=== PATIENT | male | born 1940 | race Hispanic/Latino ===

== ENCOUNTER 2024-08-04 13:04 | Inpatient (IN) | payer OTHER, MEDICARE ==
[~2024-08-04] VITALS: Ht 160 cm; Wt 68.4 kg
[~2024-08-04 13:04] MED LIST: AMLO-257 PO; HYDR2TAB8 PO; LOSA-422 PO; SIMV-46 PO
--- NOTE | 2024-08-04 13:11 | ERN ---
ED Note History of Present Illness Stated Complaint: COUGH Chief Complaint: Cough Time Seen by MD: 13:06 Dictation: PATIENT IS A 83-YEAR-OLD MALE HERE WITH A PRODUCTIVE COUGH THAT IS BLOOD-TINGED ONSET YESTERDAY WITH FEVER AND CHILLS. HE IS ALSO COMPLAINING OF DIFFUSE ANTE RIOR CHEST PAIN DOES NOT RADIATE. NO SHORTNESS A BREATH NO NAUSEA VOMITING NO DIARRHEA. DENIES ANY HISTORY OF CAD HYPERTENSION STENTS. Allergies: Coded Allergies: No Known Allergies (Verified Allergy, Severe, 07/19/16) Home Meds Reported Medications Atorvastatin Calcium (LIPITOR) 40 Mg Tablet, 1 TAB PO DAILY for 30 Days, #30 TAB 0 Refills 08/05/24 Tamsulosin HCl (Flomax) 0.4 Mg Cap.er.24h, 1 CAP PO DAILY for 30 Days, #30 CAP 0 Refills 08/05/24 Lisinopril/Hydrochlorothiazide (Lisinopril-Hctz 20-12.5 mg Tab) 20 Mg-12.5 Mg Tablet, 2 TAB PO DAILY for 30 Days, #30 TAB 0 Refills 08/05/24 Lactulose (Lactulose) 10 Gram/15 Ml Solution, 30 ML PO DAILY for constipation, #900 ML 0 Refills 08/05/24 Discontinued Reported Medications Simvastatin (Simvastatin) 40 Mg Tablet, 40 MG PO HS, TAB 07/19/16 Losartan/Hydrochlorothiazide (Hyzaar 50-12.5 Tablet) 1 Each Tablet, 1 EACH PO DAILY, TAB 07/19/16 Amlodipine Besylate (Amlodipine Besylate) 5 Mg Tablet, 5 MG PO DAILY, TAB 07/19/16 Hydromorphone HCl (Hydromorphone HCl) 2 Mg Tablet, 2 MG PO Q4H PRN for PAIN LEVEL 6 TO 10, TAB 07/25/16 Hydromorphone HCl (Hydromorphone HCl) 2 Mg Tablet, 2 MG PO Q3H PRN for PAIN LEVEL 6 TO 10, TAB 07/25/16 Past Medical History Past Medical History: Hypertension Surgical History: Other RN Note Reviewed/Agreed w/PFSH: Yes Review of System Dictation CONSTITUTIONAL: NEGATIVE EXCEPT FOR HPI FEVER CHILLS HEAD/FACE: NEGATIVE EXCEPT FOR HPI EENT: NEGATIVE EXCEPT FOR HPI RESPIRATORY: NEGATIVE EXCEPT FOR HPI COUGH WITH CHEST PAIN DIFFUSE ANTERIOR GASTROINTESTINAL/ABDOMINAL: NEGATIVE EXCEPT FOR HPI GENITOURINARY: NEGATIVE EXCEPT FOR HPI MUSCULOSKELETAL: NEGATIVE EXCEPT FOR HPI INTEGUMENTARY: NEGATIVE EXCEPT FOR HPI NEUROLOGICAL/PSYCH: NEGATIVE EXCEPT FOR HPI HEMATOLOGIC/LYMPHATIC: NEGATIVE EXCEPT FOR HPI ALL SYSTEMS NEGATIVE, EXCEPT NOTED ABOVE. 13 POINT REVIEW OF SYSTEMS ASSESSED AND ALL NEGATIVE EXCEPT FOR ABOVE. Initial Vital Sign VS Vital Signs Date Time Temp Pulse Resp B/P (MAP) Pulse Ox O2 Delivery O2 Flow Rate FiO2 08/04/24 13:06 101.7 94 20 110/51 98 Room Air 08/04/24 16:13 0 21 Physical Exam Dictation VITAL SIGNS REVIEWED GENERAL APPEARANCE: ALERT, ORIENTED X 3, NO ACUTE DISTRESS, WELL DEVELOPED, NOURISHED. HEAD AND FACE: NON-TRAUMATIC. EYES: PERRL, PINK CONJUNCTIVAS, EYELID NO TRAUMA, ANTERIOR CHAMBER WITH ARCUS SENILIS. EARS: PINNAS INTACT AND NO SIGNS OF TRAUMA OR ERYTHEMA EAR CANALS CLEAR AND NO DISCHARGE TM NO ERYTHEMA NOSE: NO DISCHARGE, NO BLEEDING. OROPHARYNX: MOUTH NORMAL, TONGUE PINK, PHARYNX CLEAR,NO ERYTHEMA, TONSILS NO EXUDATES, NO ABSCESSES NOTED, MUCOUS MEMBRANE MOIST NECK: SUPPLE, NON-TENDER, NO THYROMEGALY, NO MASSES, NO JVD, NO BRUITS BREAST:DEFERRED CHEST:NO TENDERNESS, NO CREPITUS, NO PARADOXICAL MOVEMENT, NO RETRACTIONS LUNGS:CLEAR, WELL-VENTILATED, SYMMETRIC, NO RALES, NO WHEEZING, NO RHONCHI, NO STRIDOR, GOOD BREATH SOUNDS BILATERALLY HEART: REGULAR RATE, REGULAR RHYTHM, NO MURMUR, NO GALLOPS VASCULAR: NO PERIPHERAL EDEMA, ABDOMEN: SOFT, POSITIVE BOWEL SOUNDS, NONDISTENDED, NO GUARDING, NONTENDER, NO REBOUND, NO MASSES NO HEPATOMEGALY, NO SPLENOMEGALY, NO WIN'S SIGN, NO HERNIAS. RECTAL: DEFERRED GENITAL: DEFERRED NEUROLOGICAL: NORMAL SPEECH, MOTOR FUNCTION INTACT, SENSORY FUNCTION INTACT MUSCULOSKELETAL: NECK NONTENDER, FULL RANGE OF MOTION, BACK NONTENDER, FULL RANGE OF MOTION, EXTREMITIES: NONTENDER, FULL RANGE OF MOTION SKIN: COLOR PINK, DRY, NO TURGOR, NO RASH, NO LACERATIONS, NO ABRASIONS, NO CONTUSIONS. LYMPHATIC: DEFERRED Results (Laboratory/Radiology) Laboratory/Radiology Laboratory Tests Test 08/04/24 13:08 08/04/24 13:29 08/04/24 17:20 08/04/24 18:39 Influenza Type A Antigen Negative For Type A Influenza Type B Antigen Negative For Type B SARS-CoV-2 Antigen (Rapid) PRESUMPTIVE NEGATIVE Group A Streptococcus Rapid negative (NEGATIVE) White Blood Count 32.1 K/uL (4.8-10.8) *H Red Blood Count 3.90 MIL/uL (4.50-6.20) L Hemoglobin 12.0 g/dL (14.0-18.0) L Hematocrit 37.4 % (42-54) L Mean Corpuscular Volume 95.9 fL (79-99) Mean Corpuscular Hemoglobin 30.8 pg (27.0-33.0) Mean Corpuscular Hemoglobin Concent 32.1 g/dL (32.0-36.0) Red Cell Distribution Width 14.4 % (11.0-15.5) Platelet Count 282 K/uL (130-400) Mean Platelet Volume 10.1 fL (7.5-10.5) Immature Granulocyte % (Auto) 4.0 % (0-1) H Neutrophils (%) (Auto) 86.2 % (40.0-77.0) H Lymphocytes (%) (Auto) 5.2 % (21.0-51.0) L Monocytes (%) (Auto) 4.4 % (3.0-13.0) Eosinophils (%) (Auto) 0.0 % (0.0-8.0) Basophils (%) (Auto) 0.2 % (0.0-5.0) Neutrophils # (Auto) 27.7 K/uL (1.8-7.7) H Lymphocytes # (Auto) 1.7 K/uL (1.0-4.8) Monocytes # (Auto) 1.4 K/uL (0.1-1.0) H Eosinophils # (Auto) 0.00 K/uL (0.00-0.70) Basophils # (Auto) 0.06 K/uL (0.00-0.20) Absolute Immature Granulocyte (auto 1.29 K/uL (0-1) H Segmented Neutrophils % 75 % (40-70) H Band Neutrophils % 18 % (0-2) H Lymphocytes % (Manual) 5 % (22-44) L Nucleated Red Blood Cells 0.0 % (0.0-0.19) Differential Comment MANUAL DIFFERENTIAL Reactive Lymphocytes 2 % (0-0) H White Cell Morphology Comment TOXIC GRANULATION 1+ Platelet Morphology Comment Red Blood Cell Morphology See comments Sodium Level 135 mmol/L (136-145) L Potassium Level 4.1 mmol/L (3.5-5.1) Chloride Level 99 mmol/L (101-111) L Carbon Dioxide Level 26 mmol/L (21-32) Blood Urea Nitrogen 44 mg/dL (7-18) H Creatinine 1.9 mg/dL (0.5-1.3) H Glomerular Filtration Rate Calc 35 mL/min (>90) Random Glucose 93 mg/dL (70-105) Lactic Acid Level 2.5 mmol/L (0.8-2.5) 6.5 mmol/L (0.8-2.5) H Total Calcium 8.5 mg/dL (8.5-10.1) Troponin I High Sensitivity 153 ng/L (4-75) *H 123.8 ng/L (4-75) *H Urine Color LIGHT-YELLOW (YELLOW) Urine Appearance CLEAR (CLEAR) Urine pH 5.0 (5.0-8.0) Urine Specific [place] 1.015 (1.001-1.031) Urine Protein 10 mg/dL (NEGATIVE) H Urine Glucose (UA) NEGATIVE mg/dL (NEGATIVE) Urine Ketones NEGATIVE mg/dL (NEGATIVE) Urine Occult Blood NEGATIVE (NEGATIVE) Urine Nitrate NEGATIVE (NEGATIVE) Urine Bilirubin NEGATIVE mg/dL (NEGATIVE) Urine Urobilinogen 0.2 mg/dL (0.2-1.0) Urine Leukocyte Esterase NEGATIVE [place]/uL Urine RBC 2-5 /HPF (0-1) H Urine WBC 0-1 /HPF (0-1) Urine Squamous Epithelial Cells RARE /HPF (0-2) Urine Bacteria RARE /HPF (None Seen) Total Creatine Kinase 162 U/L (21-232) Test 08/04/24 19:44 08/04/24 22:11 08/05/24 00:20 08/05/24 04:57 Whole Blood Glucose 94 MG/DL (70-110) Lactic Acid Level 1.8 mmol/L (0.8-2.5) Total Creatine Kinase 119 U/L (21-232) # Troponin I High Sensitivity 91.8 ng/L (4-75) *H White Blood Count 22.1 K/uL (4.8-10.8) #H Red Blood Count 3.01 MIL/uL (4.50-6.20) #L Hemoglobin 9.2 g/dL (14.0-18.0) #L Hematocrit 28.4 % (42-54) #L Mean Corpuscular Volume 94.4 fL (79-99) Mean Corpuscular Hemoglobin 30.6 pg (27.0-33.0) Mean Corpuscular Hemoglobin Concent 32.4 g/dL (32.0-36.0) Red Cell Distribution Width 14.3 % (11.0-15.5) Platelet Count 197 K/uL (130-400) # Mean Platelet Volume 10.3 fL (7.5-10.5) Immature Granulocyte % (Auto) 0.9 % (0-1) Neutrophils (%) (Auto) 87.5 % (40.0-77.0) H Lymphocytes (%) (Auto) 7.2 % (21.0-51.0) L Monocytes (%) (Auto) 4.2 % (3.0-13.0) Eosinophils (%) (Auto) 0.0 % (0.0-8.0) Basophils (%) (Auto) 0.2 % (0.0-5.0) Neutrophils # (Auto) 19.3 K/uL (1.8-7.7) H Lymphocytes # (Auto) 1.6 K/uL (1.0-4.8) Monocytes # (Auto) 0.9 K/uL (0.1-1.0) Eosinophils # (Auto) 0.01 K/uL (0.00-0.70) Basophils # (Auto) 0.04 K/uL (0.00-0.20) Absolute Immature Granulocyte (auto 0.20 K/uL (0-1) Nucleated Red Blood Cells 0.0 % (0.0-0.19) Sodium Level 141 mmol/L (136-145) Potassium Level 4.0 mmol/L (3.5-5.1) Chloride Level 109 mmol/L (101-111) Carbon Dioxide Level 22 mmol/L (21-32) Blood Urea Nitrogen 40 mg/dL (7-18) H Creatinine 1.5 mg/dL (0.5-1.3) H Glomerular Filtration Rate Calc 46 mL/min (>90) Random Glucose 84 mg/dL (70-105) Total Calcium 7.4 mg/dL (8.5-10.1) L Procalcitonin 1.54 ng/mL (0.05-0.5) H Test 08/05/24 05:11 Whole Blood Glucose 78 MG/DL (70-110) 1415/right lower lobe pneumonia Labs Reviewed?: Yes EKG Comment: EKG SINUS RHYTHM/HEART RATE 88/LEFT ATRIAL ENLARGEMENT/AXIS NORMAL ED Course ED Course Orders Procedure Category Date Status Time Covid19 (Sars Antigen LAB 08/04/24 Complete Rapid) 13:06 Influenza Type A & B, LAB 08/04/24 Complete Rapid 13:06 Rapid (Group A Strep) LAB 08/04/24 Complete 13:06 Cbc With Differential LAB 08/04/24 Complete 13:06 Blood Cult ANGELA 08/04/24 In Process 13:06 Troponin I High LAB 08/04/24 Complete Sensitivity 13:06 Lactic Acid LAB 08/04/24 Complete 13:06 Basic Metabolic Panel LAB 08/04/24 Complete 13:06 12 Lead Ekg Tracing- EKG 08/04/24 Resulted Technical 13:06 Albuterol 0.083% PHA 08/04/24 Complete 2.5mg/3ml (Proventil 13:30 Chest 1vw RAD 08/04/24 Resulted 13:50 Manual Differential LAB 08/04/24 Complete 13:29 Aspirin 325mg Tab PHA 08/04/24 Complete (Aspirin 325mg Tab) 14:30 0.9%Nacl 1000ml (Ns PHA 08/04/24 Complete 1000ml) 14:30 Ceftriaxone 2gm Vial PHA 08/04/24 Complete (Rocephin 2gm Inj) 14:30 Azithromycin 500mg+Ns PHA 08/04/24 Complete 250ml (Azithromyci 14:13 Oxygen By Nc/Pulse Ox CPOE 08/04/24 Transmitted 14:14 Urinalysis Profile LAB 08/04/24 Complete 14:18 Admit Orders ADM 08/04/24 Transmitted 15:01 Edm Admit Bridge Order ADM 08/04/24 Transmitted 15:01 Cardiac Panel LAB 08/04/24 Complete 18:00 Cardiac Panel LAB 08/05/24 Complete 00:00 Respiratory Cult ANGELA 08/05/24 In Process W/Gram Stain 04:00 Procalcitonin LAB 08/05/24 Complete 04:00 Cbc With Differential LAB 08/05/24 Complete 04:00 Cbc With Differential LAB 08/06/24 Verified 04:00 Cbc With Differential LAB 08/07/24 Verified 04:00 Basic Metabolic Panel LAB 08/05/24 Complete 04:00 Basic Metabolic Panel LAB 08/06/24 Verified 04:00 Basic Metabolic Panel LAB 08/07/24 Verified 04:00 Vital Signs Every 4 CPOE 08/04/24 Transmitted Hours 15:00 Activity: Ambulate W/ CPOE 08/04/24 Transmitted Assist 15:00 Heart Healthy Diet DIET 08/04/24 Transmitted Dinner O2 Order RT 08/04/24 Transmitted 15:00 Cefepime Hcl 1 Gm PHA 08/04/24 In Process Vial (Maxipime 1 Gm Vi 15:00 Doxycycline 100mg+Ns PHA 08/04/24 In Process 250ml (Doxycycline 15:00 Enoxaparin Sodium 30 PHA 08/05/24 In Process Mg/0.3 Ml (Lovenox) 09:00 Aspirin 81mg Chew Tab PHA 08/05/24 In Process (Aspirin 81mg Chew 09:00 Acetaminophen 325 Tab PHA 08/04/24 In Process (Tylenol 325mg Tab 15:00 Acetaminophen 650mg PHA 08/04/24 In Process Supp (Tylenol 650mg 15:00 Lactulose 20 Gm/30 Ml PHA 08/04/24 In Process Udcup (Constulose 15:00 Ondansetron 4mg Inj PHA 08/04/24 In Process (Zofran 4mg Inj) 15:00 Apply Scds CPOE 08/04/24 Transmitted 15:00 Condition: CPOE 08/04/24 Transmitted 15:00 Telemetry Monitoring CPOE 08/04/24 Transmitted 15:00 Initiate ONI 08/04/24 In Process Hyperglycemia Protoco 15:00 Admit Orders ADM 08/04/24 Transmitted 15:00 Initiate ONI 08/04/24 In Process Hyperglycemia Protoco 15:00 Lactic Acid (Removed) LAB 08/04/24 Complete 16:45 Lactic Acid LAB 08/04/24 Complete 22:00 *Nursing CPOE 08/04/24 Transmitted Communication: 19:03 Lactated Ringers PHA 08/04/24 Complete 1000ml (Lactated 19:30 Lactated Ringers PHA 08/04/24 In Process 1000ml (Lactated 19:30 *Nursing CPOE 08/04/24 Transmitted Communication: 19:03 Chest 1vw RAD 08/05/24 Taken 06:00 Current Medications Medications (Trade) Dose Ordered Sig/Yashira Route PRN Reason Start Time Stop Time Status Last Admin Dose Admin Acetaminophen (TYLenol 325MG TAB) 650 mg Q6H PRN PO FEVER/MILD PAIN LEVEL 1-3 08/04/24 15:00 09/03/24 14:59 Acetaminophen (TYLenol 650MG SUPPOSITORY) 650 mg Q6H PRN RC FEVER / MILD PAIN 1-3 IF NPO 08/04/24 15:00 09/03/24 14:59 Albuterol Sulfate (Proventil 0.083% 2.5mg/3ml) 2.5 mg ONCE ONCE IH 08/04/24 13:30 08/04/24 13:31 DC 08/04/24 14:36 Aspirin (Aspirin 325mg Tab) 325 mg ONCE ONCE PO 08/04/24 14:30 08/04/24 14:31 DC 08/04/24 14:16 Azithromycin 250 ml @ 250 mls/hr ONCE STAT IVPB 08/04/24 14:13 08/04/24 15:12 DC 08/04/24 15:55 Cefepime HCl (MAXipime 1 GM vial) 1 gm Q24H IVP 08/04/24 15:00 08/14/24 14:59 08/04/24 15:54 Ceftriaxone Sodium (Rocephin 2gm Inj) 2 gm ONCE ONCE IVPB 08/04/24 14:30 08/04/24 14:31 DC 08/04/24 14:15 Doxycycline Hyclate (Doxycycline 100mg+NS 250ml) 100 mg Q12H IV 08/04/24 15:00 08/14/24 14:59 08/05/24 02:15 Lactulose (Constulose 20gm/ 30ml Udcup) 20 gm Q6H PRN PO CONSTIPATION 08/04/24 15:00 09/03/24 14:59 Ondansetron HCl (zoFRAN 4MG INJ) 4 mg Q6H PRN IVP NAUSEA/VOMITING 08/04/24 15:00 09/03/24 14:59 Sodium Chloride 1,000 ml @ 0 mls/hr ONCE ONCE IV 08/04/24 14:30 08/04/24 14:31 DC 08/04/24 14:16 Vital Signs Date Time Temp Pulse Resp B/P (MAP) Pulse Ox O2 Delivery O2 Flow Rate FiO2 08/05/24 03:50 97.9 72 18 118/49 96 Room Air 21 08/04/24 23:29 98.6 74 18 112/66 96 Room Air 21 08/04/24 20:13 98.4 85 18 110/49 96 Room Air 21 08/04/24 19:30 96 Room Air* 0 21 08/04/24 18:58 97.9 56 20 124/49 96 Room Air 21 08/04/24 16:13 99.0 90 20 112/50 0 Room Air* 0 08/04/24 14:36 83 20 08/04/24 13:06 101.7 94 20 110/51 98 Room Air 1500/SPOKE WITH CLEMENT MCDONALD HOSPITALIST AND REVIEWED CHEST X-RAY EKG LABS AND INTERVENTIONS FOR SEPSIS HE AGREED TO ADMIT PATIENT. Medical Decision Making MDM MDM: Differential diagnosis: Pneumonia/bronchitis/electrolyte imbalance/dehydration/SARs COVID/influenza/ACS/AMI Rationale: Tests considered and ordered secondary to shared decision making include: labs, ECG and radiology Previous outside records reviewed: Old ER visits. Risk of complication and/or morbidity or mortality of patient management: Mild Medications-Per medication reconciliation Need for hospitalization: Patient does meet criteria for hospitalization. Patient will need admission for IV antibiotics and pulmonary support for pneumonia in addition may need Cardiology consultation for elevated troponin Need for emergency major/minor surgery: No There are no social concerns with this patient. Prescription drug management Prescriptions will include symptomatic care Patient's prior external medical records from other ER visits were reviewed by me as indicated. Prior testing and results from previous visits were reviewed. Prior tests were taken into account with medical decision making and resource utilization, independent historian/historians were used to obtain complete medical history. I independently interpreted the test that were performed, results were reviewed by me and considered findings on radiology if ordered. Medical management and examination interpretation discussions were had by me with other qualified healthcare professionals as indicated for the patient's care. DX & DISP Disposition: Inpatient Decision to Admit Time: 14:16 Departure Impression: Primary Impression: Right lower lobe pneumonia Additional Impressions: KENNETH (acute kidney injury), Hyponatremia, Dehydration, Elevated troponin level not due to acute coronary syndrome, Sepsis Critical Time: 30 minutes (Critical Care Procedure NoteAuthorized and Performed by: meTotal critical care time: Approximately 36 minutesDue to a high probability of clinically significant, life threatening deterioration, the patient required my highest level of preparedness to intervene emergently and I personally spent this critical care time directly and personally managing the patient. This critical care time included obtaining a history; examining the patient; pulse oximetry; ordering and review of studies; arranging urgent treatment with development of a management plan; evaluation of patient's response to treatment; frequent reassessment; and, discussions with other providers.This critical care time was performed to assess and manage the high probability of imminent, life-threatening deterioration that could result in multi-organ failure. It was exclusive of separately billable procedures and treating other patients and teaching time.Please see MDM section and the rest of the note for further information on patient assessment and treatment.) Condition: Stable Referrals: NICOL ROCHA MD (PCP) Time of Disposition: 14:16 I have reviewed the case, and I agree with, Diagnosis and Plan I performed a substantive portion of the visit. I have reviewed and personally made and approve the management plan that is documented in the notes by myself with JARET/resident. I acknowledged full responsibility for the patient's management plan. 83-year-old male with a pneumonia, elevated white count, meets sepsis criteria. Received 1 L normal saline, did not give the full fluid bolus to prevent fluid overload. Received antibiotics. On sepsis focused re-evaluation after the fluids and antibiotics he was stable perfusion, cap refill less than 2 seconds, stable vital signs. Admitted to the hospitalist. HILDA JOSEPH NP Aug 04, 2024 13:11 MARIBELL GARZON DO Aug 05, 2024 07:42
--- NOTE | 2024-08-04 13:13 | EKG ---
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
[2024-08-04 13:36] LABS: RAPID GROUP A STREP negative (NEGATIVE)
[2024-08-04 13:46] LABS: BASOPHILS # (AUTO) 0.06 K/uL (0.00-0.20); BASOPHILS % (AUTO) 0.2 % (0.0-5.0); HEMATOCRIT 37.4 % (42-54); IMMATURE GRANULOCYTE ABSOLUTE 1.29 K/uL (0-1); LYMPHOCYTES # (AUTO) 1.7 K/uL (1.0-4.8); LYMPHOCYTES % (AUTO) 5.2 % (21.0-51.0); MEAN CORPUSCULAR HEMOGLOBIN 30.8 pg (27.0-33.0); MEAN CORPUSCULAR HGB CONC 32.1 g/dL (32.0-36.0); MEAN CORPUSCULAR VOLUME 95.9 fL (79-99); MONOCYTES # (AUTO) 1.4 K/uL (0.1-1.0); MONOCYTES % (AUTO) 4.4 % (3.0-13.0); NEUTROPHILS # (AUTO) 27.7 K/uL (1.8-7.7); NEUTROPHILS % (AUTO) 86.2 % (40.0-77.0); PLATELET COUNT (AUTO) 282 K/uL (130-400); RED CELL DISTRIBUTION WIDTH 14.4 % (11.0-15.5)
[2024-08-04 13:48] LABS: COVID19 (SARS ANTIGEN RAPID) PRESUMPTIVE NEGATIVE (NEGATIVE); INFLUENZA TYPE A Negative For Type A (NEGATIVE); INFLUENZA TYPE B Negative For Type B (NEGATIVE)
[2024-08-04 13:53] LABS: CREATININE 1.9 mg/dL (0.5-1.3); POTASSIUM 4.1 mmol/L (3.5-5.1)
[2024-08-04 14:01] LABS: WHITE BLOOD COUNT (AUTO) 32.1 K/uL (4.8-10.8)
[2024-08-04] MEDS: CEFTRIAXONE 2GM VIAL IVPB ONE (14:15)
[2024-08-04] MEDS: 0.9%NACL 1000ML 1,000 ML IV ONE (14:16)
[2024-08-04] MEDS: ASPIRIN 325MG TAB PO ONE (14:16)
[2024-08-04 14:36] VITALS: PULSE 83; RESP 20
[2024-08-04] MEDS: ALBUTEROL 0.083% 2.5 MG/3 ML INH IH ONE (14:36)
--- NOTE | 2024-08-04 14:50 | HMCIMG ---
CHEST 1VW HISTORY: Shortness of breath/cough COMPARISON: 12/28/2015 FINDINGS: A frontal projection of the chest was obtained. Bilateral pulmonary infiltrates are seen with right more than left. The heart is borderline enlarged. All the lines and tubes are again seen in place. Aortic calcifications are seen. IMPRESSION: 1. Bilateral pulmonary infiltrates with right more than left.
[2024-08-04] MEDS ORDERED: acetaMINOPHEN 650 MG SUPPOSITORY RC PRN (15:00)
[2024-08-04] MEDS ORDERED: LACTULOSE 20 GM/30 ML UDCUP PO PRN (15:00)
[2024-08-04] MEDS ORDERED: ondanSETRON 4MG INJ IVP PRN (15:00)
[2024-08-04 15:15] LABS: BAND NEUTROPHILS % (MANUAL) 18 % (0-2); LYMPHOCYTES % (MANUAL) 5 % (22-44); REACTIVE LYMPHOCYTES 2 % (0-0); SEGMENTED NEUTROPHILS % 75 % (40-70); TOTAL CELLS COUNTED 100
[2024-08-04 15:16] LABS: MAN.DIFF COMMENT-IMPRESSION MANUAL DIFFERENTIAL; WBC MORPHOLOGY TOXIC GRANULATION 1+
--- NOTE | 2024-08-04 15:30 | NUR ---
PLACED 20G ON LEFT WRIST. PIV PATENT AND FLUSHE WITH NORMAL SALINE.
[2024-08-04] MEDS: ceFEPime HCL 1 GM VIAL IVP SCH (15:54)
[2024-08-04] MEDS: DOXYCYCLINE 100MG+NS 250ML IV SCH (15:55)
[2024-08-04] MEDS: AZITHROMYCIN 500MG+NS 250ML 250 ML IVPB STA (15:55)
--- NOTE | 2024-08-04 16:00 | NUR ---
BAR CODES FROM ANTIBIOTICS NOT SCANNING: DOXYCICLINE LOT #[id number] CEFEPIME LOT#[id number] AZITHROMYCIN LOT#[id number]
--- NOTE | 2024-08-04 16:37 | NUR ---
PENDING URINE SAMPLE
[2024-08-04 17:35] LABS: APPEARANCE,URINE CLEAR (CLEAR); BILIRUBIN,URINE NEGATIVE (NEGATIVE); COLOR,URINE LIGHT-YELLOW (YELLOW); GLUCOSE, URINE (UA) NEGATIVE (NEGATIVE); KETONES,URINE NEGATIVE (NEGATIVE); LEUKOCYTE ESTERASE ,URINE NEGATIVE Leu/uL (NEGATIVE); NITRATE,URINE NEGATIVE (NEGATIVE); OCCULT BLOOD,URINE NEGATIVE (NEGATIVE); PROTEIN,URINE 10 mg/dL (NEGATIVE); UROBILINOGEN,URINE 0.2 mg/dL (0.2-1.0)
[2024-08-04 17:36] LABS: ADD UA MICROSCOPIC YES
[2024-08-04 17:37] LABS: BACTERIA,URINE RARE /HPF (None Seen); SQUAMOUS EPITHELIAL CELL,UR RARE /HPF (0-2); WBC,URINE 0-1 /HPF (0-1)
--- NOTE | 2024-08-04 18:11 | NUR ---
OBTAINED URINE SAMPLE AND SEND IT TO LAB.
--- NOTE | 2024-08-04 18:17 | NUR ---
HOME MEDICATIONS IN CHART, PENDING TO BE RECONSILED.
--- NOTE | 2024-08-04 18:18 | NUR ---
CALLED MRS. REBEKA MONSALVE TO GIVE REPORT. TO EXTENTION [id number] AND [id number].
--- NOTE | 2024-08-04 18:25 | NUR ---
GAVE REPORT TO MRS. STALEY NURSE THAT WILL BE ASSIGNED TO PATIENT. NOTIFY HER THAT PATIENT HAS A SPUTUM COLLECTION PENDING AND HOME MEDICATIONS ARE IN THE SYSTEM OENDING TO BE RECONSILED. SHE VERBALIZED UNDERSTNDING. OF PENDING LABS.
--- NOTE | 2024-08-04 18:48 | NUR ---
PATIENT ARRIVED TO UNIT, AWAKE, ALERT, AND ORIENTED X 4. 20G TO THE LEFT AC AND WRIST. BROUGHT ON AZITHROMYCIN AND ROCEPHIN. PENDING SPUTUM CULTURE
--- NOTE | 2024-08-04 18:55 | NUR ---
RECEIVED CALL BACK FROM NOLAN QUINONES NP. INFORMED HIM REGARDING LACTIC ACID OF 6.9. SEE ORDERS. INFORMED HIM THAT THAT THERE WAS NO PHYSICIAN NOTE OR H&P DOCUMENTED.
[2024-08-04 18:58] VITALS: BP 124/49; PULSE 56; RESP 20; TEMP 97.9
[2024-08-04] MEDS: LACTATED RINGERS 1000ML 500 ML IV SCH (19:13)
[2024-08-04 19:30] VITALS: O2SAT 96
[2024-08-04 20:13] VITALS: BP 110/49; PULSE 85; RESP 18; TEMP 98.4
--- NOTE | 2024-08-04 22:01 | NUR ---
home meds asked patient's son for the remaining home medications to enter them on the system. he will go home and take a picture of them and come back tomorrow.
[2024-08-04] MEDS: LACTATED RINGERS 1000ML 1,000 ML IV SCH (22:28)
[2024-08-04 23:29] VITALS: BP 112/66; PULSE 74; RESP 18; TEMP 98.6
[2024-08-05] VITALS (8 sets, daily range): BP systolic 118–163; BP diastolic 49–63; PULSE 60–72; RESP 18–22; TEMP 97.6–98.4; O2SAT 98
--- NOTE | 2024-08-05 01:32 | NUR ---
troponin troponin 123 and 91.8. paged nonog thea, television camera operator, and he is aware. also let him know that there is no history and physical dictation on the patient. he said to let day shift know. no new orders given.
[2024-08-05] MEDS ORDERED: LACT-441 PO (01:43)
[2024-08-05] MEDS ORDERED: ATOR40TA69 PO (01:43)
[2024-08-05] MEDS ORDERED: TAMS-1 PO (01:43)
[2024-08-05] MEDS ORDERED: LISI1TAB51 PO (01:43)
--- NOTE | 2024-08-05 05:13 | NUR ---
NURSE NOTE PATIENT AAOX3,PLAN OF CARE DISCUSSED WITH PATIENT AND SONS, VERBALIZED UNDERSTANDING. AT THIS TIME PATIENT DENIES PAIN AND DISCOMFORT, REPORTS FEELING BETTER, CXR DONE, PENDING RESULTS, CALL ELLISON AT REACH, BED TO LOWEST LEVEL. WILL CONTINUE TO MONITOR.
[2024-08-05 05:41] LABS: WHITE BLOOD COUNT (AUTO) 22.1 K/uL (4.8-10.8)
[2024-08-05 05:50] LABS: BASOPHILS # (AUTO) 0.04 K/uL (0.00-0.20); BASOPHILS % (AUTO) 0.2 % (0.0-5.0); EOSINOPHILS # (AUTO) 0.01 K/uL (0.00-0.70); HEMATOCRIT 28.4 % (42-54); LYMPHOCYTES # (AUTO) 1.6 K/uL (1.0-4.8); LYMPHOCYTES % (AUTO) 7.2 % (21.0-51.0); MEAN CORPUSCULAR HEMOGLOBIN 30.6 pg (27.0-33.0); MEAN CORPUSCULAR HGB CONC 32.4 g/dL (32.0-36.0); MEAN CORPUSCULAR VOLUME 94.4 fL (79-99); MONOCYTES # (AUTO) 0.9 K/uL (0.1-1.0); MONOCYTES % (AUTO) 4.2 % (3.0-13.0); NEUTROPHILS # (AUTO) 19.3 K/uL (1.8-7.7); NEUTROPHILS % (AUTO) 87.5 % (40.0-77.0); PLATELET COUNT (AUTO) 197 K/uL (130-400); RED BLOOD CELL COUNT(AUTO) 3.01 MIL/uL (4.50-6.20); RED CELL DISTRIBUTION WIDTH 14.3 % (11.0-15.5)
[2024-08-05 06:11] LABS: CREATININE 1.5 mg/dL (0.5-1.3)
[2024-08-05] MEDS: ASPIRIN 81MG CHEW TAB PO SCH (08:35)
[2024-08-05] MEDS: ENOXAPARIN SODIUM 30 MG/0.3 ML SQ SCH (08:35)
--- NOTE | 2024-08-05 08:49 | HMCIMG ---
CHEST 1VW HISTORY: Pneumonia COMPARISON: 08/04/2024 FINDINGS: A frontal projection of the chest was obtained. Bilateral lower lung pulmonary infiltrates are seen with right more than left. The heart is borderline enlarged. Degenerative changes are seen. No evidence of aortic calcification is seen. IMPRESSION: 1. Bilateral lower lung pulmonary infiltrates with right more than left.
[2024-08-05] MEDS: tamSULOsin HCL 0.4 MG CAP.ER.24H PO ONE (15:19)
[2024-08-05] MEDS: atorVAStatin 40 MG TABLET ONE (19:40)
[2024-08-05] MEDS: atorVAStatin 40 MG TABLET PO SCH (19:43)
--- NOTE | 2024-08-05 20:26 | HP ---
[facility] HISTORY & PHYSICAL Date Patient Seen: Aug 05, 2024 Time of Visit: 1259 Supervising Physician: Dr. Dee Primary Care Physician: Dr. Sadiq Ramírez Outpatient Specialists: [ ] Inpatient Consults: [ ] PROBLEM LIST: Acute severe sepsis likely secondary to community-acquired pneumonia Community-acquired pneumonia bilateral infiltrates right more than the left Acute kidney injury likely secondary to ATN Non-STEMI likely type 2 ischemic demand Hypertension Hyperlipidemia History of colon cancer in 2017 in remission HPI: PATIENT IS A 83-YEAR-OLD MALE HERE WITH A PRODUCTIVE COUGH THAT IS BLOOD-TINGED ONSET YESTERDAY WITH FEVER AND CHILLS. HE IS ALSO COMPLAINING OF DIFFUSE AN TERIOR CHEST PAIN DOES NOT RADIATE. NO SHORTNESS A BREATH NO NAUSEA VOMITING NO DIARRHEA. DENIES ANY HISTORY OF CAD HYPERTENSION STENTS. Patient was seen and examined at bedside with son present. Patient is awake alert able to answer simple questions appropriately. Patient currently on room air appears to be tolerating well. Patient denies any nausea vomiting or abdominal pain. Patient denies any chest pain or shortness of breadth at this time. Patient's WBCs noted to be trending down today 22.1 yesterday 32.1. Patient's serum creatinine level noted to be trending down today 1.5 yesterday 1.9 we will continue to monitor closely. No temperatures have been reported upon admission patient had a temperature of 101.7. We will follow up with blood culture and respiratory culture. Patient's COVID and flu were negative. Patient also had elevated procalcitonin level 1.54. Patient's troponin level noted to trend down to 91 peaked at 153. Likely type 2 ischemic demand we will continue to monitor closely. Patient to continue with aspirin statin and Lovenox. We will continue with IV antibiotics PAST MEDICAL HX: see above PAST SURGICAL HX: noncontributory SOCIAL HISTORY: No tobacco, ETOH, or illicit drug use Coded Allergies: No Known Allergies (Verified Allergy, Severe, 07/19/16) REVIEW OF SYSTEMS: 12 point ROS reviewed with patient. Pertinent positives mentioned above. Otherwise negative. PHYSICAL EXAM: GENERAL: alert, weak, awake oriented x 3 HEENT: EOMI, Sclera non icteric, moist mucosa NECK: Supple, no JVD, trachea midline LUNGS: Clear breath sounds bilaterally. No wheezes HEART: Regular rate and rhythm. Normal S1 and S2, without murmurs ABD: Abdomen soft, nontender. Bowel sounds present EXT: No clubbing cyanosis or edema NEURO: Alert and oriented to person, follows commands Vital Signs (last 8hr) Date Time Temp Pulse Resp B/P (MAP) Pulse Ox O2 Delivery O2 Flow Rate FiO2 08/05/24 19:51 98.2 69 18 147/54 98 Room Air 21 08/05/24 15:25 98.1 66 20 163/63 97 Room Air 21 LABS: Hematology Labs: Test 08/05/24 04:57 08/04/24 13:29 Range/Units White Blood Count 22.1 #H 4.8-10.8 K/uL Red Blood Count 3.01 #L 4.50-6.20 MIL/uL Hemoglobin 9.2 #L 14.0-18.0 g/dL Hematocrit 28.4 #L 42-54 % Mean Corpuscular Volume 94.4 79-99 fL Mean Corpuscular Hemoglobin 30.6 27.0-33.0 pg Mean Corpuscular Hemoglobin Concent 32.4 32.0-36.0 g/dL Red Cell Distribution Width 14.3 11.0-15.5 % Platelet Count 197 # 130-400 K/uL Mean Platelet Volume 10.3 7.5-10.5 fL Immature Granulocyte % (Auto) 0.9 0-1 % Neutrophils (%) (Auto) 87.5 H 40.0-77.0 % Lymphocytes (%) (Auto) 7.2 L 21.0-51.0 % Monocytes (%) (Auto) 4.2 3.0-13.0 % Eosinophils (%) (Auto) 0.0 0.0-8.0 % Basophils (%) (Auto) 0.2 0.0-5.0 % Neutrophils # (Auto) 19.3 H 1.8-7.7 K/uL Lymphocytes # (Auto) 1.6 1.0-4.8 K/uL Monocytes # (Auto) 0.9 0.1-1.0 K/uL Eosinophils # (Auto) 0.01 0.00-0.70 K/uL Basophils # (Auto) 0.04 0.00-0.20 K/uL Absolute Immature Granulocyte (auto 0.20 0-1 K/uL Nucleated Red Blood Cells 0.0 0.0-0.19 % Segmented Neutrophils % 75 H 40-70 % Band Neutrophils % 18 H 0-2 % Lymphocytes % (Manual) 5 L 22-44 % Differential Comment MANUAL DIFFERENTIAL Reactive Lymphocytes 2 H 0-0 % White Cell Morphology Comment TOXIC GRANULATION 1+ Platelet Morphology Comment Red Blood Cell Morphology See comments Chemistry Labs: Test 08/05/24 19:32 08/05/24 04:57 08/05/24 00:20 08/04/24 22:11 Range/Units Whole Blood Glucose 124 H 70-110 MG/DL Sodium Level 141 136-145 mmol/L Potassium Level 4.0 3.5-5.1 mmol/L Chloride Level 109 101-111 mmol/L Carbon Dioxide Level 22 21-32 mmol/L Blood Urea Nitrogen 40 H 7-18 mg/dL Creatinine 1.5 H 0.5-1.3 mg/dL Glomerular Filtration Rate Calc 46 >90 mL/min Random Glucose 84 70-105 mg/dL Total Calcium 7.4 L 8.5-10.1 mg/dL Procalcitonin 1.54 H 0.05-0.5 ng/mL Total Creatine Kinase 119 # 21-232 U/L Troponin I High Sensitivity 91.8 *H 4-75 ng/L Lactic Acid Level 1.8 0.8-2.5 mmol/L DIAGNOSTICS / RADIOLOGY RESULTS: na PLAN Follow up blood culture Follow up with sputum culture Continue doxycycline 100 mg b.i.d. Continue with cefepime1 g every 8 hours Continue to monitor serum creatinine level closely Repeat labs in a.m. Continue [id number] mg daily Continue atorvastatin 40 mg q.h.s. Continue Flomax q.h.s. NEURO: Minimize central acting medications as possible. Maintain fall precautions, adequate lighting during the day PULMONARY: Supplemental 02 as needed. Maintain aspiration precautions at all times CARDIOVASCULAR: Follow hemodynamics. Vital signs per facility protocol GI & NUTRITION: Continue with nutritional support. Continue stool softeners and laxatives as needed. KIDNEYS & ELECTROLYTES: Strict monitoring of intake, output and overall fluid balance. Avoid nephrotoxic medications to the extent possible. Medications to be dosed according to renal function. Monitor electrolytes and replace as needed ENDOCRINE: Maintain blood glucose between 100-180 at all times. Hypoglycemia protocol in place INFECTIOUS DISEASE: Trend temperature, WBC and procalcitonin level Follow cultures, deescalate antibiotics as soon as possible. Panculture if new onset fever ONCOLOGY/HEMATOLOGY/COAGULATION: Monitor for s/s of bleeding Monitor hemoglobin, coagulation studies as needed SKIN: Pressure ulcer prevention per facility protocol Specialty mattress ORTHO/REHAB: Continue PT/OT Prophylaxis: Continue GI and DVT prophylaxis Code Status: Full Resuscitation Disposition: TBD Other: Case discussed with supervising physician plan of care agreed upon XIOMARA GAMEZ Aug 05, 2024 20:26
[2024-08-06] VITALS (9 sets, daily range): BP systolic 126–177; BP diastolic 47–92; PULSE 66–86; RESP 16–19; TEMP 98–99.4; O2SAT 98–99
[2024-08-06] MEDS: hydrALAZine 20MG/ML VIAL IV PRN (03:41)
[2024-08-06 04:17] LABS: BASOPHILS # (AUTO) 0.04 K/uL (0.00-0.20); BASOPHILS % (AUTO) 0.2 % (0.0-5.0); EOSINOPHILS # (AUTO) 0.15 K/uL (0.00-0.70); EOSINOPHILS % (AUTO) 0.9 % (0.0-8.0); HEMATOCRIT 30.3 % (42-54); IMMATURE GRANULOCYTE ABSOLUTE 0.09 K/uL (0-1); LYMPHOCYTES # (AUTO) 1.6 K/uL (1.0-4.8); LYMPHOCYTES % (AUTO) 9.4 % (21.0-51.0); MEAN CORPUSCULAR HEMOGLOBIN 30.4 pg (27.0-33.0); MEAN CORPUSCULAR HGB CONC 32.3 g/dL (32.0-36.0); MEAN CORPUSCULAR VOLUME 94.1 fL (79-99); MONOCYTES # (AUTO) 0.6 K/uL (0.1-1.0); MONOCYTES % (AUTO) 3.8 % (3.0-13.0); NEUTROPHILS % (AUTO) 85.2 % (40.0-77.0); PLATELET COUNT (AUTO) 192 K/uL (130-400); RED BLOOD CELL COUNT(AUTO) 3.22 MIL/uL (4.50-6.20); RED CELL DISTRIBUTION WIDTH 13.9 % (11.0-15.5); WHITE BLOOD COUNT (AUTO) 16.4 K/uL (4.8-10.8)
[2024-08-06 04:32] LABS: CREATININE 1.2 mg/dL (0.5-1.3); POTASSIUM 3.7 mmol/L (3.5-5.1)
[2024-08-06] MEDS ORDERED: atorVAStatin 40 MG TABLET PO SCH (09:00)
[2024-08-06] MEDS: LACTULOSE 20 GM/30 ML UDCUP PO SCH (09:00)
--- NOTE | 2024-08-06 15:50 | NUR ---
DCP Patient is DNR with a purple bracelet. Patient states he lives with Ricardo Huston/POA [phone] in a rental house with a tub. 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 States he is able to complete ADL's on his own. States he has a wheelchair. Denies home health service, home care provider or dialysis. PCP - Sadiq Ramírez MD Pharmacy - [facility]. Upon discharge, states Ricardo Huston/MARGARET [phone] and assist with care, as needed. At this time, he does not foresee additional medical needs. Addendum: 08/06/24 at 1554 by AMILCAR LEHMAN RN CM Amended: Links added.
--- NOTE | 2024-08-06 16:28 | PN ---
[facility] PROGRESS NOTE Date Patient Seen: Aug 06, 2024 Time of Visit: 1222 Supervising Physician: Dr. Dee Primary Care Physician: Dr. Sadiq Ramírez Outpatient Specialists: [ ] Inpatient Consults: [ ] PROBLEM LIST: Acute severe sepsis likely secondary to community-acquired pneumonia Community-acquired pneumonia bilateral infiltrates right more than the left Acute kidney injury likely secondary to ATN Non-STEMI likely type 2 ischemic demand Hypertension Hyperlipidemia History of colon cancer in 2017 in remission INTERVAL HISTORY: 08/06 patient was seen and examined at bedside with son present. Patient is awake alert able to answer simple questions appropriately. Patient denies any chest pain or shortness of breadth. Remains on room air is tolerating well. Patient denies any nausea vomiting or abdominal pain. Patient's WBCs continue to trend down today 16.4 yesterday 22.1. Patient's serum creatinine level continuing to trend down today 1.2 yesterday 1.5 we will continue to monitor closely we will repeat patient's labs tomorrow morning. Patient to continue on IV antibiotics. If no acute events occurred and WBCs continue to trend down plan is to discharge tomorrow morning on oral antibiotics. REVIEW OF SYSTEMS: 12 point ROS reviewed with patient. Pertinent positives mentioned above. Otherwise negative. PHYSICAL EXAM: GENERAL: alert, weak, awake oriented x 3 HEENT: EOMI, Sclera non icteric, moist mucosa NECK: Supple, no JVD, trachea midline LUNGS: Clear breath sounds bilaterally. No wheezes HEART: Regular rate and rhythm. Normal S1 and S2, without murmurs ABD: Abdomen soft, nontender. Bowel sounds present EXT: No clubbing cyanosis or edema NEURO: Alert and oriented to person, follows commands Vital Signs (last 8hr) Date Time Temp Pulse Resp B/P (MAP) Pulse Ox O2 Delivery O2 Flow Rate FiO2 08/06/24 11:56 98.1 66 18 176/86 99 Room Air 21 08/06/24 11:55 99.3 85 18 154/92 94 Room Air 21 LABS: Hematology Labs: Test 08/06/24 03:42 Range/Units White Blood Count 16.4 #H 4.8-10.8 K/uL Red Blood Count 3.22 L 4.50-6.20 MIL/uL Hemoglobin 9.8 L 14.0-18.0 g/dL Hematocrit 30.3 L 42-54 % Mean Corpuscular Volume 94.1 79-99 fL Mean Corpuscular Hemoglobin 30.4 27.0-33.0 pg Mean Corpuscular Hemoglobin Concent 32.3 32.0-36.0 g/dL Red Cell Distribution Width 13.9 11.0-15.5 % Platelet Count 192 130-400 K/uL Mean Platelet Volume 10.2 7.5-10.5 fL Immature Granulocyte % (Auto) 0.5 0-1 % Neutrophils (%) (Auto) 85.2 H 40.0-77.0 % Lymphocytes (%) (Auto) 9.4 L 21.0-51.0 % Monocytes (%) (Auto) 3.8 3.0-13.0 % Eosinophils (%) (Auto) 0.9 0.0-8.0 % Basophils (%) (Auto) 0.2 0.0-5.0 % Neutrophils # (Auto) 14.0 H 1.8-7.7 K/uL Lymphocytes # (Auto) 1.6 1.0-4.8 K/uL Monocytes # (Auto) 0.6 0.1-1.0 K/uL Eosinophils # (Auto) 0.15 0.00-0.70 K/uL Basophils # (Auto) 0.04 0.00-0.20 K/uL Absolute Immature Granulocyte (auto 0.09 0-1 K/uL Nucleated Red Blood Cells 0.0 0.0-0.19 % Chemistry Labs: Test 08/06/24 15:57 08/06/24 03:42 08/05/24 04:57 08/05/24 00:20 Range/Units Whole Blood Glucose 94 70-110 MG/DL Sodium Level 140 136-145 mmol/L Potassium Level 3.7 3.5-5.1 mmol/L Chloride Level 106 101-111 mmol/L Carbon Dioxide Level 26 21-32 mmol/L Blood Urea Nitrogen 29 H 7-18 mg/dL Creatinine 1.2 0.5-1.3 mg/dL Glomerular Filtration Rate Calc 60 >90 mL/min Random Glucose 100 70-105 mg/dL Total Calcium 8.0 L 8.5-10.1 mg/dL Procalcitonin 1.54 H 0.05-0.5 ng/mL Total Creatine Kinase 119 # 21-232 U/L Troponin I High Sensitivity 91.8 *H 4-75 ng/L Test 08/04/24 22:11 Range/Units Lactic Acid Level 1.8 0.8-2.5 mmol/L DIAGNOSTICS / RADIOLOGY RESULTS: na PLAN Plan is for discharge tomorrow morning if no acute events occurred on oral antibiotics Levaquin 750 daily to complete a total seven days Follow up blood culture no growth x1 day Follow up with sputum culture, Ruth positive Continue doxycycline 100 mg b.i.d. Continue with cefepime1 g every 8 hours Continue to monitor serum creatinine level closely Repeat labs in a.m. Continue [id number] mg daily Continue atorvastatin 40 mg q.h.s. Continue Flomax q.h.s. NEURO: Minimize central acting medications as possible. Maintain fall precautions, adequate lighting during the day PULMONARY: Supplemental 02 as needed. Maintain aspiration precautions at all times CARDIOVASCULAR: Follow hemodynamics. Vital signs per facility protocol GI & NUTRITION: Continue with nutritional support. Continue stool softeners and laxatives as needed. KIDNEYS & ELECTROLYTES: Strict monitoring of intake, output and overall fluid balance. Avoid nephrotoxic medications to the extent possible. Medications to be dosed according to renal function. Monitor electrolytes and replace as needed ENDOCRINE: Maintain blood glucose between 100-180 at all times. Hypoglycemia protocol in place INFECTIOUS DISEASE: Trend temperature, WBC and procalcitonin level Follow cultures, deescalate antibiotics as soon as possible. Panculture if new onset fever ONCOLOGY/HEMATOLOGY/COAGULATION: Monitor for s/s of bleeding Monitor hemoglobin, coagulation studies as needed SKIN: Pressure ulcer prevention per facility protocol Specialty mattress ORTHO/REHAB: Continue PT/OT Prophylaxis: Continue GI and DVT prophylaxis Code Status: Full Resuscitation Disposition: TBD Other: Case discussed with supervising physician plan of care agreed upon XIOMARA GAMEZ Aug 06, 2024 16:28
[2024-08-06] MEDS: tamSULOsin HCL 0.4 MG CAP.ER.24H PO SCH (20:21)
--- NOTE | 2024-08-06 21:00 | NUR ---
Refusal Patient refused bed alarm, signed refusal form. Educated on use of call light, verbalized understanding. Patient walking in room, steady gait. Assisted back to bed. Call light within reach.
[2024-08-07] MEDS: acetaMINOPHEN 325 MG TAB PO PRN (03:44)
[2024-08-07 04:08] VITALS: BP 154/66; PULSE 76; RESP 18; TEMP 98
[2024-08-07 04:35] LABS: BASOPHILS # (AUTO) 0.02 K/uL (0.00-0.20); BASOPHILS % (AUTO) 0.2 % (0.0-5.0); EOSINOPHILS # (AUTO) 0.14 K/uL (0.00-0.70); EOSINOPHILS % (AUTO) 1.1 % (0.0-8.0); HEMATOCRIT 28.9 % (42-54); IMMATURE GRANULOCYTE ABSOLUTE 0.13 K/uL (0-1); LYMPHOCYTES # (AUTO) 1.8 K/uL (1.0-4.8); LYMPHOCYTES % (AUTO) 14.4 % (21.0-51.0); MEAN CORPUSCULAR HEMOGLOBIN 29.8 pg (27.0-33.0); MEAN CORPUSCULAR HGB CONC 31.8 g/dL (32.0-36.0); MEAN CORPUSCULAR VOLUME 93.5 fL (79-99); MONOCYTES # (AUTO) 0.7 K/uL (0.1-1.0); MONOCYTES % (AUTO) 5.8 % (3.0-13.0); NEUTROPHILS # (AUTO) 9.6 K/uL (1.8-7.7); NEUTROPHILS % (AUTO) 77.5 % (40.0-77.0); PLATELET COUNT (AUTO) 230 K/uL (130-400); RED BLOOD CELL COUNT(AUTO) 3.09 MIL/uL (4.50-6.20); WHITE BLOOD COUNT (AUTO) 12.4 K/uL (4.8-10.8)
[2024-08-07 04:43] LABS: CREATININE 1.1 mg/dL (0.5-1.3); POTASSIUM 3.4 mmol/L (3.5-5.1)
[2024-08-07 08:00] VITALS: BP 156/67; PULSE 81; RESP 18; TEMP 97.3; O2SAT 97
[2024-08-07 12:00] VITALS: BP 152/89; PULSE 76; RESP 18; TEMP 98.2
--- NOTE | 2024-08-07 13:33 | NUR ---
DISCHARGE DISCHARGE ORDERS OBTAINED FOR PATIENT TO BE DISCHARGED HOME. DISCHARGE INSTRUCTIONS AND DOCUMENTATION GIVEN TO PATIENT AT BEDSIDE. VOICED UNDERSTANDING. IV DISCONTINUED, CATHETER INTACT, NO S/S OF INFECTION NOTED TO AREA. PATIENT TOLERATED WELL. PATIENT LEFT ACCOMPANIED BY SON, NO S/S OF DISTRESS NOTED.
--- NOTE | 2024-08-07 15:32 | DS ---
[facility] DISCHARGE SUMMARY Date Patient Seen: Aug 07, 2024 Time of Visit: 1158 Supervising Physician: Dr. Soriano Primary Care Physician: Dr. Sadiq Ramírez Outpatient Specialists: [ ] Inpatient Consults: [ ] PROBLEM LIST: Acute severe sepsis likely secondary to community-acquired pneumonia, resolving we will complete treatment with oral antibiotics Community-acquired pneumonia bilateral infiltrates right more than the left , we will complete treatment with oral antibiotics Acute kidney injury likely secondary to ATN, resolved Non-STEMI likely type 2 ischemic demand , resolved Hypertension Hyperlipidemia History of colon cancer in 2017 in remission HOSPITAL COURSE: HPI (per admitting provider) PATIENT IS A 83-YEAR-OLD MALE HERE WITH A PRODUCTIVE COUGH THAT IS BLOOD-TINGED ONSET YESTERDAY WITH FEVER AND CHILLS. HE IS ALSO COMPLAINING OF DIFFUSE ANTERIOR CHEST PAIN DOES NOT RADIATE. NO SHORTNESS A BREATH NO NAUSEA VOMITING NO DIARRHEA. DENIES ANY HISTORY OF CAD HYPERTENSION STENTS. Patient was seen and examined by bedside with son present. Patient is awake alert able to answer simple questions appropriately. Patient remains on room air is tolerating well. Patient denies any nausea vomiting or abdominal pain. He is tolerating p.o. diet is having bowel movements. Patient's WBCs continue to trend down today 12.4 yesterday 60.4. Patient's serum creatinine level back to baseline 1.1. At this time patient's blood cultures were positive for Gram- positive cocci in clusters coagulase negative staph-1/2 sets likely contaminant. Instructed patient will be getting discharged today and will need to follow up with PCP within 3-5 days upon discharge. Also instructed patient will be getting discharged on oral antibiotics to complete treatment for pneumonia Levaquin 750 mg p.o. daily to complete a total seven days. 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 PCP notified of patients admission, hospital course and discharge. Continued Medications: Atorvastatin Calcium (Lipitor) 40 Mg Tablet 1 TAB PO DAILY for 30 Days, #30 TAB 0 Refills Lactulose (Lactulose) 10 Gram/15 Ml Solution 30 ML PO DAILY for constipation, #900 ML 0 Refills Lisinopril/Hydrochlorothiazide (Lisinopril-Hctz 20-12.5 mg Tab) 20 Mg-12.5 Mg Tablet 2 TAB PO DAILY for 30 Days, #30 TAB 0 Refills Tamsulosin HCl (Flomax) 0.4 Mg Cap.er.24h 1 CAP PO DAILY for 30 Days, #30 CAP 0 Refills PHYSICAL EXAM: GENERAL: alert, weak, awake oriented x 3 HEENT: EOMI, Sclera non icteric, moist mucosa NECK: Supple, no JVD, trachea midline LUNGS: Clear breath sounds bilaterally. No wheezes HEART: Regular rate and rhythm. Normal S1 and S2, without murmurs ABD: Abdomen soft, nontender. Bowel sounds present EXT: No clubbing cyanosis or edema NEURO: Alert and oriented to person, follows commands FOLLOW-UP: Follow-up with PCP in 2-3 days RECOMMENDATIONS: See Discharge Instructions This case was seen and discussed with my supervising physician. 35 minutes spent on discharge process, including evaluation of the patient, discussion with nursing staff, medication reconciliation and follow-up appointments XIOMARA GAMEZ Aug 07, 2024 15:32
== END 2024-08-07 13:25 | disposition home or self-care (01) | DRG 871 ==
LOC: EDH 13:04 → EDHIP 15:01 → 4DH 18:28
PROVIDERS: ADMIT Internal Medicine Critical Care Medicine; ATTEND Internal Medicine Critical Care Medicine
DX: A41.9 Sepsis, unspecified organism (principal); I21.A1 Myocardial infarction type 2; J18.9 Pneumonia, unspecified organism; N17.0 Acute kidney failure with tubular necrosis; E87.1 Hypo-osmolality and hyponatremia; E78.5 Hyperlipidemia, unspecified; Z20.822 Contact with and (suspected) exposure to COVID-19; R65.20 Severe sepsis without septic shock; I10 Essential (primary) hypertension; Z85.038 Personal history of other malignant neoplasm of large intestine; Z79.899 Other long term (current) drug therapy; Z99.81 Dependence on supplemental oxygen
CPT/HCPCS: 36415; 71045; 80048; 81001; 82550; 82948; 83605; 84145; 84484; 85025; 87040; 87071; 87086; 87186; 87205; 87426; 87804; 87880; 93005; 94640; G0378; J0360; J0456; J0692; J0696; J1650; J3490